=== PATIENT | male | born 1985 | race African-American/Black ===

== ENCOUNTER 2020-03-08 00:21 | Inpatient (IN) ==
[2020-03-08] MEDS ORDERED: SODIUM CHLORIDE 0.9% 1,000 ML IV STA ×2 (00:40→01:35)
[2020-03-08 01:21] LABS: Bilirubin,Urine Negative (Negative); Blood, Urine Negative (Negative); Glucose,Urine (UA) Negative (Negative); Ketones,Urine 5 mg/dL (Negative); Mucus,Urine Many /LPF (Occasional); Nitrite,Urine Negative (Negative); Protein,Urine 100 MG/DL; Sperm,Urine Moderate /HPF (Negative); Urine Appearance Slightly Hazy (Clear); Urine Color Amber (Yellow); Urine Specific Gravity 1.029 (1.001-1.035)
[2020-03-08 01:24] LABS: Basophils % 0.3 % (0.0-0.8); Hematocrit 42.8 VOL% (42.0-52.0); Hemoglobin 12.6 GM/DL (14.0-18.0); Immature Granulocytes % 0.4 %; Immature Granulocytes Absolute 0.06 #; Lymphocytes # 1.2 10*3/uL (1.4-4.0); Lymphocytes % 7.6 % (21.2-54.2); Mean Corpuscular HGB Conc 29.4 GM/DL (32-36); Mean Platelet Volume 10.6 FL (9.6-12.0); Neutrophils % 73.7 % (38.7-73.9); Platelet Count 418 T/CUMM (130-400); Red Cell Distribution Width 17.2 % (9.3-17.3); White Blood Count 15.2 T/CUMM (4-12)
[2020-03-08] MEDS ORDERED: CEFEPIME 1,000 MG in SODIUM CHLORIDE 0.9% 100 ML IV STA (01:35)
[2020-03-08 01:39] LABS: Alanine Aminotransferase 13 U/L (16-61); Albumin 3.2 G/DL (3.4-5.0); Alkaline Phosphatase 77 U/L (45-117); Aspartate Amino Transferase 13 U/L (0-37); Blood Urea Nitrogen 24 MG/DL (7-18); Calcium 10.1 MG/DL (8.5-10.1); Estimated Glom Filtration Rate 143 ML/MIN; Glucose 108 MG/DL (74-106); Osmolality,Calculated 290.8 MOS/KG (273-304); Total Protein 8.6 G/DL (6.4-8.3)
[2020-03-08 02:03] LABS: Band Neutrophils 4 % (0-10); Lymphocytes 19 % (20-55); Segmented Neutrophils 63 % (50-85); Total Cells Counted 100
[2020-03-08 02:04] LABS: Ovalocytes Few; Polychromasia Few
[2020-03-08 02:05] LABS: Dohle Bodies Few; Platelet Estimate Adequate
[2020-03-08] MEDS ORDERED: DEXTROSE 50% 25 GM/50 ML VIAL IV PRN (02:08)
[2020-03-08] MEDS ORDERED: ONDANSETRON 4 MG/2 ML VIAL IV PRN (02:08)
[2020-03-08] MEDS ORDERED: GLUCAGON 1 MG VIAL IM PRN (02:08)
[2020-03-08 02:28] LABS: INR 1.3; PT Patient Result 14.1 SECS (9.8-11.9)
[2020-03-08] MEDS: ALBUTEROL/IPRATROPIUM 3 ML NEB RESP TX SCH ×6 (02:45→22:21)
[2020-03-08] MEDS: ENOXAPARIN 40 MG/0.4 ML SYRINGE SUBCUT SCH (03:26)
[2020-03-08] MEDS: CEFEPIME 1,000 MG in SODIUM CHLORIDE 0.9% 100 ML IV SCH ×4 (03:27→21:09)
[2020-03-08] MEDS: QUEtiapine 100 MG TABLET PO SCH ×2 (03:27→16:03)
[2020-03-08] MEDS: SODIUM CHLORIDE 0.9% 1,000 ML IV SCH ×2 (03:56→15:35)
[2020-03-08 03:57] LABS: Basophils % 0.2 % (0.0-0.8); Hematocrit 36.3 VOL% (42.0-52.0); Immature Granulocytes % 0.4 %; Immature Granulocytes Absolute 0.05 #; Lymphocytes # 1.2 10*3/uL (1.4-4.0); Lymphocytes % 10.5 % (21.2-54.2); Mean Corpuscular HGB Conc 30.3 GM/DL (32-36); Mean Platelet Volume 9.9 FL (9.6-12.0); Monocytes % 16.2 % (1.7-12.7); Neutrophils % 72.7 % (38.7-73.9); Platelet Count 293 T/CUMM (130-400); Red Blood Count 5.26 MC/CUMM (3.8-5.5); Red Cell Distribution Width 15.8 % (9.3-17.3); White Blood Count 11.8 T/CUMM (4-12)
[2020-03-08 04:18] LABS: Calcium 8.9 MG/DL (8.5-10.1); Osmolality,Calculated 293.6 MOS/KG (273-304)
[2020-03-08 04:28] LABS: Band Neutrophils 7 % (0-10); Hypochromasia 1+; Lymphocytes 9 % (20-55); Microcytosis 1+; Platelet Estimate Adequate; Segmented Neutrophils 65 % (50-85); Total Cells Counted 100
[2020-03-08] MEDS: DIVALPROEX 500 MG TABLET PO SCH ×2 (09:00→21:08)
[2020-03-08] MEDS ORDERED: LORazepam 2 MG/1 ML VIAL ONE (09:29)
[2020-03-08] MEDS: HALOPERIDOL 5 MG TABLET PO SCH ×2 (10:30→21:08)
[2020-03-08] MEDS: PANTOPRAZOLE 40 MG TABLET PO SCH (10:30)
[2020-03-08] MEDS ORDERED: ACETAMINOPHEN 500 MG TABLET PER TUBE ONE (15:47)
[2020-03-08] MEDS ORDERED: ACETAMINOPHEN 325 MG/10.15 ML UDCUP PER TUBE ONE (15:51)
[2020-03-08] MEDS: ACETAMINOPHEN 325 MG/10.15 ML UDCUP PER TUBE PRN (16:04)
[2020-03-09] MEDS: ALBUTEROL/IPRATROPIUM 3 ML NEB RESP TX SCH ×6 (02:13→23:25)
[2020-03-09] MEDS: ENOXAPARIN 40 MG/0.4 ML SYRINGE SUBCUT SCH (02:38)
[2020-03-09] MEDS: QUEtiapine 100 MG TABLET PO SCH ×2 (04:54→15:53)
[2020-03-09] MEDS: CEFEPIME 1,000 MG in SODIUM CHLORIDE 0.9% 100 ML IV SCH ×4 (04:55→21:42)
[2020-03-09] MEDS: SODIUM CHLORIDE 0.9% 1,000 ML IV SCH (06:00)
[2020-03-09 06:11] LABS: Basophils % 0.2 % (0.0-0.8); Hematocrit 30.1 VOL% (42.0-52.0); Immature Granulocytes % 0.7 %; Immature Granulocytes Absolute 0.11 #; Lymphocytes # 1.9 10*3/uL (1.4-4.0); Lymphocytes % 11.7 % (21.2-54.2); Mean Corpuscular HGB Conc 29.9 GM/DL (32-36); Mean Corpuscular Volume 69.4 FL (87-102); Mean Platelet Volume 10.9 FL (9.6-12.0); Monocytes % 8.3 % (1.7-12.7); Neutrophils % 79.1 % (38.7-73.9); Platelet Count 266 T/CUMM (130-400); Red Blood Count 4.34 MC/CUMM (3.8-5.5); Red Cell Distribution Width 15.7 % (9.3-17.3)
[2020-03-09 06:14] LABS: Calcium 8.4 MG/DL (8.5-10.1); Osmolality,Calculated 291.6 MOS/KG (273-304)
[2020-03-09 06:29] LABS: White Blood Count 16.6 T/CUMM (4-12)
[2020-03-09 06:36] LABS: Hypochromasia 1+; Lymphocytes 14 % (20-55); Microcytosis 1+; Platelet Estimate Adequate; Segmented Neutrophils 82 % (50-85); Total Cells Counted 100
[2020-03-09] MEDS ORDERED: POTASSIUM CHLORIDE 20 MEQ/15 ML UDCUP PER TUBE PRN (07:37)
[2020-03-09] MEDS ORDERED: POTASSIUM PHOSPHATE 30 MMOL in SODIUM CHLORIDE 0.9% 250 ML IV ONE (09:00)
[2020-03-09] MEDS: DIVALPROEX 500 MG TABLET PO SCH ×2 (09:25→21:41)
[2020-03-09] MEDS: HALOPERIDOL 5 MG TABLET PO SCH ×2 (09:25→21:41)
[2020-03-09] MEDS: PANTOPRAZOLE 40 MG TABLET PO SCH (09:25)
[2020-03-09] MEDS: SODIUM CHLORIDE 0.45% 1,000 ML IV SCH (09:26)
[2020-03-09] MEDS: ACETAMINOPHEN 325 MG/10.15 ML UDCUP PER TUBE PRN ×2 (09:40→21:42)
[2020-03-09] MEDS: DESITIN 4OZ/NYSTATIN 15 GRAM MIXTURE PASTE TOP SCH ×2 (15:53→21:43)
[2020-03-09] MEDS: NYSTATIN POWDER 15 GM BOTTLE TOP SCH ×2 (15:53→21:43)
[2020-03-10] MEDS: ALBUTEROL/IPRATROPIUM 3 ML NEB RESP TX SCH ×6 (03:55→23:20)
[2020-03-10] MEDS: CEFEPIME 1,000 MG in SODIUM CHLORIDE 0.9% 100 ML IV SCH ×4 (04:42→21:04)
[2020-03-10] MEDS: QUEtiapine 100 MG TABLET PO SCH ×2 (04:42→15:45)
[2020-03-10] MEDS: ENOXAPARIN 40 MG/0.4 ML SYRINGE SUBCUT SCH (04:42)
[2020-03-10] MEDS: ACETAMINOPHEN 325 MG/10.15 ML UDCUP PER TUBE PRN ×2 (05:13→15:45)
[2020-03-10] MEDS: SODIUM CHLORIDE 0.45% 1,000 ML IV SCH (05:27)
[2020-03-10 07:04] LABS: Basophils % 0.1 % (0.0-0.8); Hematocrit 28.3 VOL% (42.0-52.0); Hemoglobin 8.5 GM/DL (14.0-18.0); Immature Granulocytes % 0.4 %; Immature Granulocytes Absolute 0.04 #; Lymphocytes # 1.3 10*3/uL (1.4-4.0); Lymphocytes % 13.2 % (21.2-54.2); Monocytes % 7.1 % (1.7-12.7); Neutrophils % 79.2 % (38.7-73.9); Platelet Count 232 T/CUMM (130-400); Red Cell Distribution Width 15.8 % (9.3-17.3); White Blood Count 10.1 T/CUMM (4-12)
[2020-03-10 07:26] LABS: Hypochromasia 1+; Lymphocytes 9 % (20-55); Microcytosis 1+; Platelet Estimate Adequate; Segmented Neutrophils 85 % (50-85); Total Cells Counted 100
[2020-03-10 07:56] LABS: Calcium 8.2 MG/DL (8.5-10.1); Osmolality,Calculated 282.1 MOS/KG (273-304)
[2020-03-10] MEDS: DESITIN 4OZ/NYSTATIN 15 GRAM MIXTURE PASTE TOP SCH ×2 (10:02→20:42)
[2020-03-10] MEDS: NYSTATIN POWDER 15 GM BOTTLE TOP SCH ×2 (10:02→20:42)
[2020-03-10] MEDS: PANTOPRAZOLE 40 MG TABLET PO SCH (10:02)
[2020-03-10] MEDS: HALOPERIDOL 5 MG TABLET PO SCH ×2 (10:03→20:42)
[2020-03-10] MEDS: DIVALPROEX 500 MG TABLET PO SCH ×2 (10:03→20:41)
[2020-03-10] MEDS: VANCOMYCIN INJ 1,000 MG in SODIUM CHLORIDE 0.9% 250 ML IV SCH ×2 (10:05→20:42)
[2020-03-11] MEDS: ALBUTEROL/IPRATROPIUM 3 ML NEB RESP TX SCH ×5 (03:00→19:09)
[2020-03-11] MEDS: ENOXAPARIN 40 MG/0.4 ML SYRINGE SUBCUT SCH (03:26)
[2020-03-11] MEDS: QUEtiapine 100 MG TABLET PO SCH ×2 (03:26→14:51)
[2020-03-11] MEDS: CEFEPIME 1,000 MG in SODIUM CHLORIDE 0.9% 100 ML IV SCH ×4 (03:27→23:56)
[2020-03-11 06:27] LABS: Basophils % 0.2 % (0.0-0.8); Eosinophils % 0.2 % (0.00-10.9); Hematocrit 28.3 VOL% (42.0-52.0); Hemoglobin 8.6 GM/DL (14.0-18.0); Immature Granulocytes % 0.2 %; Immature Granulocytes Absolute 0.02 #; Lymphocytes # 1.8 10*3/uL (1.4-4.0); Mean Corpuscular HGB Conc 30.4 GM/DL (32-36); Mean Platelet Volume 11.4 FL (9.6-12.0); Monocytes % 12.9 % (1.7-12.7); Neutrophils % 65.5 % (38.7-73.9); Platelet Count 233 T/CUMM (130-400); Red Blood Count 4.16 MC/CUMM (3.8-5.5); Red Cell Distribution Width 15.7 % (9.3-17.3); White Blood Count 8.7 T/CUMM (4-12)
[2020-03-11 06:40] LABS: Calcium 8.3 MG/DL (8.5-10.1); Osmolality,Calculated 274.5 MOS/KG (273-304)
[2020-03-11 07:03] LABS: Hypochromasia Slight; Lymphocytes 16 % (20-55); Microcytosis 2+; Platelet Estimate Normal; Segmented Neutrophils 71 % (50-85); Total Cells Counted 100
[2020-03-11] MEDS: SODIUM CHLORIDE 0.45% 1,000 ML IV SCH (07:29)
[2020-03-11] MEDS: VANCOMYCIN INJ 1,000 MG in SODIUM CHLORIDE 0.9% 250 ML IV SCH ×2 (08:25→22:11)
[2020-03-11] MEDS: DIVALPROEX 500 MG TABLET PO SCH ×2 (09:28→21:53)
[2020-03-11] MEDS: POTASSIUM CHLORIDE 20 MEQ/15 ML UDCUP PER TUBE PRN ×3 (09:28→14:51)
[2020-03-11] MEDS: HALOPERIDOL 5 MG TABLET PO SCH ×2 (09:28→21:53)
[2020-03-11] MEDS: PANTOPRAZOLE 40 MG TABLET PO SCH (09:29)
[2020-03-11] MEDS: NYSTATIN POWDER 15 GM BOTTLE TOP SCH ×2 (09:30→21:52)
[2020-03-11] MEDS: DESITIN 4OZ/NYSTATIN 15 GRAM MIXTURE PASTE TOP SCH ×2 (09:30→21:52)
[2020-03-12] MEDS: ALBUTEROL/IPRATROPIUM 3 ML NEB RESP TX SCH ×6 (00:35→19:49)
[2020-03-12] MEDS: ENOXAPARIN 40 MG/0.4 ML SYRINGE SUBCUT SCH (03:39)
[2020-03-12] MEDS: QUEtiapine 100 MG TABLET PO SCH ×2 (03:40→14:43)
[2020-03-12] MEDS: CEFEPIME 1,000 MG in SODIUM CHLORIDE 0.9% 100 ML IV SCH ×4 (03:46→23:42)
[2020-03-12] MEDS: HALOPERIDOL 5 MG TABLET PO SCH ×2 (09:55→23:40)
[2020-03-12] MEDS: DIVALPROEX 500 MG TABLET PO SCH ×2 (09:55→23:40)
[2020-03-12] MEDS: PANTOPRAZOLE 40 MG TABLET PO SCH (09:55)
[2020-03-12] MEDS: VANCOMYCIN INJ 1,000 MG in SODIUM CHLORIDE 0.9% 250 ML IV SCH ×3 (10:24→17:35)
[2020-03-12] MEDS: SODIUM CHLORIDE 0.45% 1,000 ML IV SCH ×2 (10:57→17:36)
[2020-03-12] MEDS: NYSTATIN POWDER 15 GM BOTTLE TOP SCH ×2 (10:58→23:40)
[2020-03-12] MEDS: DESITIN 4OZ/NYSTATIN 15 GRAM MIXTURE PASTE TOP SCH ×2 (10:58→23:40)
[2020-03-13] MEDS: ALBUTEROL/IPRATROPIUM 3 ML NEB RESP TX SCH ×3 (00:21→08:06)
[2020-03-13] MEDS: VANCOMYCIN INJ 1,000 MG in SODIUM CHLORIDE 0.9% 250 ML IV SCH (03:12)
[2020-03-13] MEDS: ENOXAPARIN 40 MG/0.4 ML SYRINGE SUBCUT SCH (03:12)
[2020-03-13] MEDS: QUEtiapine 100 MG TABLET PO SCH ×2 (03:12→15:20)
[2020-03-13] MEDS: CEFEPIME 1,000 MG in SODIUM CHLORIDE 0.9% 100 ML IV SCH (04:14)
[2020-03-13 06:43] LABS: Basophils % 0.4 % (0.0-0.8); Eosinophils # 0.2 10*3/uL (0.0-0.87); Eosinophils % 2.6 % (0.00-10.9); Hematocrit 31.6 VOL% (42.0-52.0); Immature Granulocytes % 0.7 %; Immature Granulocytes Absolute 0.05 #; Lymphocytes # 1.9 10*3/uL (1.4-4.0); Lymphocytes % 25.7 % (21.2-54.2); Mean Corpuscular HGB Conc 30.1 GM/DL (32-36); Mean Corpuscular Volume 68.3 FL (87-102); Mean Platelet Volume 10.9 FL (9.6-12.0); Monocytes % 13.6 % (1.7-12.7); Platelet Count 329 T/CUMM (130-400); Red Blood Count 4.63 MC/CUMM (3.8-5.5); Red Cell Distribution Width 15.7 % (9.3-17.3); White Blood Count 7.3 T/CUMM (4-12)
[2020-03-13 06:46] LABS: Hemoglobin 9.5 GM/DL (14.0-18.0)
[2020-03-13 06:57] LABS: Calcium 9.1 MG/DL (8.5-10.1); Osmolality,Calculated 273.7 MOS/KG (273-304)
[2020-03-13] MEDS ORDERED: LEVOFLOXACIN 500 MG TABLET PO SCH (09:00)
[2020-03-13] MEDS: DESITIN 4OZ/NYSTATIN 15 GRAM MIXTURE PASTE TOP SCH (10:33)
[2020-03-13] MEDS: NYSTATIN POWDER 15 GM BOTTLE TOP SCH (10:33)
[2020-03-13] MEDS: DIVALPROEX 500 MG TABLET PO SCH (10:34)
[2020-03-13] MEDS: PANTOPRAZOLE 40 MG TABLET PO SCH (10:34)
[2020-03-13] MEDS: HALOPERIDOL 5 MG TABLET PO SCH (10:34)
[2020-03-13 12:06] VITALS: BP 103/75
[2020-03-13] MEDS: SODIUM CHLORIDE 0.45% 1,000 ML IV SCH (15:20)
== END 2020-03-13 15:05 | DRG 193 ==
LOC: EDUNIT# → EDBD → N.ED 00:21 → SUATTDRO 02:08 → N.EDINP 02:08 → N.3E 11:56
PROVIDERS: ADMIT Internal Medicine; ATTEND Phlebology

== ENCOUNTER 2020-03-16 12:34 | Inpatient (IN) ==
[2020-03-16] MEDS ORDERED: PIPERACILLIN/TAZOBACTAM 3,375 MG in SODIUM CHLORIDE 0.9% 100 ML IV STA (13:16)
[2020-03-16] MEDS ORDERED: SODIUM CHLORIDE 0.9% 1,000 ML IV STA (13:16)
[2020-03-16 13:21] LABS: Basophils % 0.2 % (0.0-0.8); Hematocrit 36.9 VOL% (42.0-52.0); Hemoglobin 10.9 GM/DL (14.0-18.0); Immature Granulocytes % 0.7 %; Immature Granulocytes Absolute 0.14 #; Lymphocytes # 1.5 10*3/uL (1.4-4.0); Lymphocytes % 7.5 % (21.2-54.2); Mean Corpuscular HGB Conc 29.5 GM/DL (32-36); Mean Platelet Volume 9.5 FL (9.6-12.0); Monocytes % 6.7 % (1.7-12.7); Neutrophils % 84.9 % (38.7-73.9); Platelet Count 551 T/CUMM (130-400); Red Blood Count 5.43 MC/CUMM (3.8-5.5); Red Cell Distribution Width 15.8 % (9.3-17.3); White Blood Count 19.7 T/CUMM (4-12)
[2020-03-16 13:35] LABS: INR 1.2; PT Patient Result 12.3 SECS (9.8-11.9)
[2020-03-16] MEDS ORDERED: ACETAMINOPHEN 325 MG/10.15 ML UDCUP PEG STA (13:38)
[2020-03-16] MEDS ORDERED: ACETAMINOPHEN 160 MG/5 ML UDCUP ONE (13:42)
[2020-03-16 13:43] LABS: Alanine Aminotransferase 19 U/L (16-61); Albumin 2.7 G/DL (3.4-5.0); Alkaline Phosphatase 65 U/L (45-117); Aspartate Amino Transferase 19 U/L (0-37); Bilirubin,Total < 0.39 MG/DL (0.2-1.0); Blood Urea Nitrogen 23 MG/DL (7-18); Calcium 9.4 MG/DL (8.5-10.1); Carbon Dioxide 24 MMOL/L (21-32); Estimated Glom Filtration Rate 133 ML/MIN; Glucose 107 MG/DL (74-106); Osmolality,Calculated 267.5 MOS/KG (273-304); Potassium 4.6 MMOL/L (3.5-5.1); Sodium 132 MMOL/L (136-145); Total Protein 8.3 G/DL (6.4-8.3)
[2020-03-16 14:07] LABS: Anisocytosis 1+; Band Neutrophils 2 % (0-10); Hypochromasia 1+; Lymphocytes 8 % (20-55); Platelet Estimate Adequate; Polychromasia Few; Segmented Neutrophils 86 % (50-85); Target Cells Few; Total Cells Counted 100
[2020-03-16] MEDS ORDERED: SODIUM CHLORIDE 0.9% 500 ML IV STA (15:08)
[2020-03-16 15:42] LABS: Ferritin 664.3 ng/ml (26-388)
[2020-03-16] MEDS ORDERED: ONDANSETRON 4 MG/2 ML VIAL IV PRN (15:46)
[2020-03-16] MEDS ORDERED: hydrALAZINE 20 MG/1 ML VIAL IV PRN (15:46)
[2020-03-16] MEDS ORDERED: GLUCAGON 1 MG VIAL IM PRN (15:46)
[2020-03-16] MEDS ORDERED: LACTULOSE 20 GM/30 ML UDCUP PO PRN (15:46)
[2020-03-16] MEDS ORDERED: DEXTROSE 50% 25 GM/50 ML VIAL IV PRN (15:46)
[2020-03-16] MEDS ORDERED: ACETAMINOPHEN 325 MG TABLET PER TUBE PRN (15:46)
[2020-03-16 16:30] LABS: Risk Ratio 2.29; Thyroid Stimulating Hormone 1.49 uIU/ml (0.358-3.74); VLDL CHOLESTEROL 12.4 MG/DL
[2020-03-16] MEDS: ALBUTEROL 2.5 MG/3 ML NEB RESP TX SCH (19:53)
[2020-03-16] MEDS: MEROPENEM 500 MG in SODIUM CHLORIDE 0.9% 100 ML IV SCH ×2 (20:10→21:30)
[2020-03-16] MEDS: SODIUM CHLORIDE 0.9% 1,000 ML IV SCH (20:10)
[2020-03-16 20:54] LABS: Bacteria,Urine Occasional /HPF (Few); Bilirubin,Urine Negative (Negative); Blood, Urine Negative (Negative); Glucose,Urine (UA) Negative (Negative); Ketones,Urine Negative (Negative); Mucus,Urine Occasional /LPF (Occasional); Nitrite,Urine Negative (Negative); Protein,Urine Negative; RBC,Urine 2 /HPF (0-4); Squamous Epithelial Cell,Urine Occasional /HPF (0-10); Urine Appearance CLEAR (Clear); Urine Color Yellow (Yellow); WBC,Urine 2 /HPF (0-6)
[2020-03-16] MEDS: guaiFENesin/DM ER 600-30 MG TABLET PO SCH (21:06)
[2020-03-16] MEDS: DIVALPROEX 500 MG TABLET PO SCH (21:07)
[2020-03-16] MEDS: QUEtiapine 100 MG TABLET PO SCH (21:07)
[2020-03-17] MEDS: ALBUTEROL 2.5 MG/3 ML NEB RESP TX SCH ×4 (00:27→19:30)
[2020-03-17 04:14] LABS: Basophils # 0.1 10*3/uL (0.0-0.2); Basophils % 0.2 % (0.0-0.8); Eosinophils % 0.1 % (0.00-10.9); Hematocrit 28.7 VOL% (42.0-52.0); Immature Granulocytes % 0.6 %; Immature Granulocytes Absolute 0.14 #; Lymphocytes # 1.9 10*3/uL (1.4-4.0); Lymphocytes % 8.6 % (21.2-54.2); Mean Corpuscular HGB Conc 31.4 GM/DL (32-36); Mean Corpuscular Volume 67.4 FL (87-102); Mean Platelet Volume 9.9 FL (9.6-12.0); Monocytes % 6.1 % (1.7-12.7); Neutrophils % 84.4 % (38.7-73.9); Platelet Count 462 T/CUMM (130-400); Red Blood Count 4.26 MC/CUMM (3.8-5.5); Red Cell Distribution Width 15.6 % (9.3-17.3); White Blood Count 21.8 T/CUMM (4-12)
[2020-03-17] MEDS: MEROPENEM 500 MG in SODIUM CHLORIDE 0.9% 100 ML IV SCH ×4 (04:19→21:20)
[2020-03-17] MEDS: QUEtiapine 100 MG TABLET PO SCH ×2 (04:19→18:44)
[2020-03-17 04:42] LABS: Band Neutrophils 2 % (0-10); Hypochromasia 2+; Lymphocytes 10 % (20-55); Myelocytes 1 %; Segmented Neutrophils 82 % (50-85); Total Cells Counted 100
[2020-03-17 04:43] LABS: Microcytosis 1+; Ovalocytes Slight; Platelet Estimate Increased; Target Cells Slight
[2020-03-17 04:48] LABS: Calcium 9.1 MG/DL (8.5-10.1); Osmolality,Calculated 276.5 MOS/KG (273-304); Potassium 4.1 MMOL/L (3.5-5.1)
[2020-03-17] MEDS ORDERED: SODIUM CHLORIDE 0.9% 500 ML IV ONE (08:18)
[2020-03-17] MEDS: DIVALPROEX 500 MG TABLET PO SCH ×2 (08:43→21:22)
[2020-03-17] MEDS: guaiFENesin/DM ER 600-30 MG TABLET PO SCH ×2 (08:43→21:21)
[2020-03-17] MEDS: OMEPRAZOLE ODT 20 MG TABLET PER TUBE SCH (08:43)
[2020-03-17] MEDS: SODIUM CHLORIDE 0.9% 1,000 ML IV SCH (08:57)
[2020-03-17] MEDS: methylPREDNISolone SOD SUC 40 MG/1 ML VIAL IV SCH ×2 (08:57→18:44)
[2020-03-17] MEDS: ZINC OXIDE PASTE 113 GM TUBE TOP SCH ×2 (18:44→21:23)
[2020-03-18] MEDS: methylPREDNISolone SOD SUC 40 MG/1 ML VIAL IV SCH ×3 (00:04→17:21)
[2020-03-18] MEDS: ALBUTEROL 2.5 MG/3 ML NEB RESP TX SCH ×4 (00:43→19:35)
[2020-03-18] MEDS: SODIUM CHLORIDE 0.9% 1,000 ML IV SCH ×3 (01:26→21:03)
[2020-03-18] MEDS: MEROPENEM 500 MG in SODIUM CHLORIDE 0.9% 100 ML IV SCH ×4 (03:50→22:02)
[2020-03-18] MEDS: QUEtiapine 100 MG TABLET PO SCH ×2 (03:50→17:06)
[2020-03-18 06:00] LABS: Hematocrit 28.5 VOL% (42.0-52.0); Hemoglobin 8.4 GM/DL (14.0-18.0); Immature Granulocytes % 0.7 %; Immature Granulocytes Absolute 0.07 #; Lymphocytes # 0.9 10*3/uL (1.4-4.0); Lymphocytes % 8.9 % (21.2-54.2); Mean Corpuscular HGB Conc 29.5 GM/DL (32-36); Mean Corpuscular Volume 67.9 FL (87-102); Mean Platelet Volume 9.9 FL (9.6-12.0); Monocytes % 2.3 % (1.7-12.7); Neutrophils % 88.1 % (38.7-73.9); Platelet Count 462 T/CUMM (130-400); Red Cell Distribution Width 15.4 % (9.3-17.3); White Blood Count 10.2 T/CUMM (4-12)
[2020-03-18 06:16] LABS: Calcium 9.2 MG/DL (8.5-10.1); Osmolality,Calculated 268.2 MOS/KG (273-304); Potassium 3.9 MMOL/L (3.5-5.1)
[2020-03-18] MEDS: DIVALPROEX 500 MG TABLET PO SCH (10:17)
[2020-03-18] MEDS: guaiFENesin/DM ER 600-30 MG TABLET PO SCH ×2 (10:17→21:03)
[2020-03-18] MEDS: OMEPRAZOLE ODT 20 MG TABLET PER TUBE SCH (10:17)
[2020-03-18] MEDS: ZINC OXIDE PASTE 113 GM TUBE TOP SCH ×2 (10:18→21:03)
[2020-03-18] MEDS ORDERED: DIVALPROEX SPRINKLE 125 MG CAPSULE PO SCH (21:00)
[2020-03-18] MEDS: DIVALPROEX SPRINKLE 125 MG CAPSULE PO SCH (21:03)
[2020-03-19] MEDS: methylPREDNISolone SOD SUC 40 MG/1 ML VIAL IV SCH ×3 (00:31→16:45)
[2020-03-19] MEDS: ALBUTEROL 2.5 MG/3 ML NEB RESP TX SCH ×4 (01:38→19:05)
[2020-03-19] MEDS: QUEtiapine 100 MG TABLET PO SCH ×2 (03:34→16:50)
[2020-03-19] MEDS: MEROPENEM 500 MG in SODIUM CHLORIDE 0.9% 100 ML IV SCH ×4 (03:34→21:03)
[2020-03-19 06:12] LABS: Hematocrit 27.5 VOL% (42.0-52.0); Hemoglobin 8.3 GM/DL (14.0-18.0); Immature Granulocytes % 0.6 %; Immature Granulocytes Absolute 0.04 #; Lymphocytes # 0.8 10*3/uL (1.4-4.0); Lymphocytes % 11.9 % (21.2-54.2); Mean Corpuscular HGB Conc 30.2 GM/DL (32-36); Mean Corpuscular Volume 67.2 FL (87-102); Mean Platelet Volume 10.2 FL (9.6-12.0); Monocytes % 3.2 % (1.7-12.7); Neutrophils % 84.3 % (38.7-73.9); Platelet Count 496 T/CUMM (130-400); Red Blood Count 4.09 MC/CUMM (3.8-5.5); Red Cell Distribution Width 15.5 % (9.3-17.3); White Blood Count 6.8 T/CUMM (4-12)
[2020-03-19 08:17] LABS: Calcium 8.7 MG/DL (8.5-10.1); Potassium 3.7 MMOL/L (3.5-5.1)
[2020-03-19] MEDS: DIVALPROEX SPRINKLE 125 MG CAPSULE PO SCH ×4 (08:42→21:03)
[2020-03-19] MEDS: OMEPRAZOLE ODT 20 MG TABLET PER TUBE SCH (08:42)
[2020-03-19] MEDS: ZINC OXIDE PASTE 113 GM TUBE TOP SCH ×2 (08:43→21:04)
[2020-03-19] MEDS: guaiFENesin/DM ER 600-30 MG TABLET PO SCH ×2 (08:43→21:03)
[2020-03-19] MEDS: SODIUM CHLORIDE 0.9% 1,000 ML IV SCH ×2 (09:19→12:13)
[2020-03-20] MEDS: ALBUTEROL 2.5 MG/3 ML NEB RESP TX SCH ×4 (00:11→19:08)
[2020-03-20] MEDS: SODIUM CHLORIDE 0.9% 1,000 ML IV SCH (00:12)
[2020-03-20] MEDS: methylPREDNISolone SOD SUC 40 MG/1 ML VIAL IV SCH ×3 (02:48→22:01)
[2020-03-20] MEDS: MEROPENEM 500 MG in SODIUM CHLORIDE 0.9% 100 ML IV SCH ×4 (06:23→22:08)
[2020-03-20] MEDS: QUEtiapine 100 MG TABLET PO SCH ×2 (06:34→15:55)
[2020-03-20 06:35] LABS: Hematocrit 33.2 VOL% (42.0-52.0); Hemoglobin 9.8 GM/DL (14.0-18.0); Immature Granulocytes % 0.5 %; Immature Granulocytes Absolute 0.03 #; Lymphocytes # 0.8 10*3/uL (1.4-4.0); Lymphocytes % 13.6 % (21.2-54.2); Mean Corpuscular HGB Conc 29.5 GM/DL (32-36); Mean Corpuscular Volume 68.7 FL (87-102); Monocytes % 4.2 % (1.7-12.7); Neutrophils % 81.7 % (38.7-73.9); Platelet Count 574 T/CUMM (130-400); Red Blood Count 4.83 MC/CUMM (3.8-5.5); Red Cell Distribution Width 15.3 % (9.3-17.3); White Blood Count 5.5 T/CUMM (4-12)
[2020-03-20 06:59] LABS: Calcium 8.8 MG/DL (8.5-10.1); Osmolality,Calculated 275.7 MOS/KG (273-304); Potassium 3.9 MMOL/L (3.5-5.1)
[2020-03-20] MEDS: guaiFENesin/DM ER 600-30 MG TABLET PO SCH ×2 (09:06→21:40)
[2020-03-20] MEDS: ZINC OXIDE PASTE 113 GM TUBE TOP SCH ×2 (09:06→22:00)
[2020-03-20] MEDS: VALPROIC ACID 250 MG/5 ML UDCUP PO SCH ×5 (09:06→21:40)
[2020-03-20] MEDS: OMEPRAZOLE ODT 20 MG TABLET PER TUBE SCH (09:06)
[2020-03-20] MEDS ORDERED: methylPREDNISolone SOD SUC 40 MG/1 ML VIAL IV SCH (11:30)
[2020-03-20] MEDS: VANCOMYCIN INJ 1,000 MG in SODIUM CHLORIDE 0.9% 250 ML IV SCH (13:22)
[2020-03-21] MEDS: ALBUTEROL 2.5 MG/3 ML NEB RESP TX SCH ×4 (00:20→19:06)
[2020-03-21] MEDS: VANCOMYCIN INJ 1,000 MG in SODIUM CHLORIDE 0.9% 250 ML IV SCH ×2 (00:51→12:45)
[2020-03-21] MEDS: MEROPENEM 500 MG in SODIUM CHLORIDE 0.9% 100 ML IV SCH ×4 (05:00→23:05)
[2020-03-21 05:44] LABS: Basophils % 0.1 % (0.0-0.8); Hematocrit 32.5 VOL% (42.0-52.0); Hemoglobin 10.1 GM/DL (14.0-18.0); Immature Granulocytes % 0.9 %; Immature Granulocytes Absolute 0.07 #; Lymphocytes # 2.1 10*3/uL (1.4-4.0); Lymphocytes % 27.9 % (21.2-54.2); Mean Corpuscular HGB Conc 31.1 GM/DL (32-36); Mean Corpuscular Volume 66.3 FL (87-102); Mean Platelet Volume 10.1 FL (9.6-12.0); Monocytes % 12.5 % (1.7-12.7); Neutrophils % 58.6 % (38.7-73.9); Platelet Count 516 T/CUMM (130-400); Red Cell Distribution Width 15.3 % (9.3-17.3); White Blood Count 7.5 T/CUMM (4-12)
[2020-03-21 05:54] LABS: Calcium 8.4 MG/DL (8.5-10.1); Osmolality,Calculated 268.1 MOS/KG (273-304)
[2020-03-21] MEDS: QUEtiapine 100 MG TABLET PO SCH ×2 (06:30→17:24)
[2020-03-21] MEDS: VALPROIC ACID 250 MG/5 ML UDCUP PO SCH ×4 (10:10→23:00)
[2020-03-21] MEDS: OMEPRAZOLE ODT 20 MG TABLET PER TUBE SCH (10:10)
[2020-03-21] MEDS: guaiFENesin/DM ER 600-30 MG TABLET PO SCH ×2 (10:10→22:58)
[2020-03-21] MEDS: methylPREDNISolone SOD SUC 40 MG/1 ML VIAL IV SCH ×2 (10:11→22:59)
[2020-03-21] MEDS: ZINC OXIDE PASTE 113 GM TUBE TOP SCH ×2 (10:15→23:00)
[2020-03-21] MEDS: HALOPERIDOL 5 MG TABLET PO SCH ×2 (12:38→22:58)
[2020-03-22] MEDS: ALBUTEROL 2.5 MG/3 ML NEB RESP TX SCH ×4 (01:54→18:51)
[2020-03-22] MEDS: VANCOMYCIN INJ 1,000 MG in SODIUM CHLORIDE 0.9% 250 ML IV SCH ×2 (02:32→14:55)
[2020-03-22] MEDS: MEROPENEM 500 MG in SODIUM CHLORIDE 0.9% 100 ML IV SCH ×4 (04:34→22:00)
[2020-03-22] MEDS: QUEtiapine 100 MG TABLET PO SCH ×2 (05:20→18:23)
[2020-03-22] MEDS ORDERED: ALBUTEROL 2.5 MG/3 ML NEB RESP TX ONE (07:13)
[2020-03-22] MEDS: methylPREDNISolone SOD SUC 40 MG/1 ML VIAL IV SCH ×2 (08:57→21:55)
[2020-03-22] MEDS: HALOPERIDOL 5 MG TABLET PO SCH ×2 (08:58→21:55)
[2020-03-22] MEDS: guaiFENesin/DM ER 600-30 MG TABLET PO SCH ×2 (08:58→21:55)
[2020-03-22] MEDS: OMEPRAZOLE ODT 20 MG TABLET PER TUBE SCH (08:58)
[2020-03-22] MEDS: ZINC OXIDE PASTE 113 GM TUBE TOP SCH ×2 (09:02→21:56)
[2020-03-22] MEDS: VALPROIC ACID 250 MG/5 ML UDCUP PO SCH ×4 (09:02→21:56)
[2020-03-23] MEDS: VANCOMYCIN INJ 1,000 MG in SODIUM CHLORIDE 0.9% 250 ML IV SCH ×2 (02:46→14:58)
[2020-03-23] MEDS: ALBUTEROL 2.5 MG/3 ML NEB RESP TX SCH ×4 (02:48→19:40)
[2020-03-23] MEDS: MEROPENEM 500 MG in SODIUM CHLORIDE 0.9% 100 ML IV SCH ×4 (04:23→22:20)
[2020-03-23] MEDS: QUEtiapine 100 MG TABLET PO SCH ×2 (04:23→17:31)
[2020-03-23 05:57] LABS: Hematocrit 34.9 VOL% (42.0-52.0); Immature Granulocytes % 1.3 %; Immature Granulocytes Absolute 0.06 #; Lymphocytes % 21.5 % (21.2-54.2); Mean Corpuscular HGB Conc 30.4 GM/DL (32-36); Mean Corpuscular Volume 67.8 FL (87-102); Mean Platelet Volume 9.9 FL (9.6-12.0); Monocytes % 6.8 % (1.7-12.7); Neutrophils % 70.4 % (38.7-73.9); Platelet Count 467 T/CUMM (130-400); Red Blood Count 5.15 MC/CUMM (3.8-5.5); Red Cell Distribution Width 16.7 % (9.3-17.3); White Blood Count 4.6 T/CUMM (4-12)
[2020-03-23 05:58] LABS: Calcium 8.8 MG/DL (8.5-10.1)
[2020-03-23 05:59] LABS: Hemoglobin 10.6 GM/DL (14.0-18.0)
[2020-03-23] MEDS: HALOPERIDOL 5 MG TABLET PO SCH ×2 (09:45→22:20)
[2020-03-23] MEDS: VALPROIC ACID 250 MG/5 ML UDCUP PO SCH ×4 (09:45→22:20)
[2020-03-23] MEDS: OMEPRAZOLE ODT 20 MG TABLET PER TUBE SCH (09:46)
[2020-03-23] MEDS: ZINC OXIDE PASTE 113 GM TUBE TOP SCH ×2 (09:46→22:20)
[2020-03-23] MEDS: guaiFENesin/DM ER 600-30 MG TABLET PO SCH ×2 (09:46→22:20)
[2020-03-23] MEDS: methylPREDNISolone SOD SUC 40 MG/1 ML VIAL IV SCH (09:49)
[2020-03-24] MEDS: ALBUTEROL 2.5 MG/3 ML NEB RESP TX SCH ×2 (00:53→07:30)
[2020-03-24] MEDS: VANCOMYCIN INJ 1,000 MG in SODIUM CHLORIDE 0.9% 250 ML IV SCH (03:36)
[2020-03-24] MEDS: QUEtiapine 100 MG TABLET PO SCH (03:39)
[2020-03-24 06:18] LABS: Calcium 8.5 MG/DL (8.5-10.1); Osmolality,Calculated 274.7 MOS/KG (273-304); Potassium 3.5 MMOL/L (3.5-5.1)
[2020-03-24] MEDS: HALOPERIDOL 5 MG TABLET PO SCH (08:46)
[2020-03-24] MEDS: VALPROIC ACID 250 MG/5 ML UDCUP PO SCH (08:46)
[2020-03-24] MEDS: guaiFENesin/DM ER 600-30 MG TABLET PO SCH (08:46)
[2020-03-24] MEDS: OMEPRAZOLE ODT 20 MG TABLET PER TUBE SCH (08:46)
[2020-03-24] MEDS ORDERED: predniSONE 20 MG TABLET PO SCH (09:00)
[2020-03-24] MEDS: ZINC OXIDE PASTE 113 GM TUBE TOP SCH (10:15)
[2020-03-24 11:22] VITALS: BP 127/78
== END 2020-03-24 15:00 | DRG 871 ==
LOC: EDUNIT# → EDBD → N.ED 12:34 → N.EDINP 15:47 → SUATTDRO 15:47 → N.TELES 19:40
PROVIDERS: ADMIT Internal Medicine; ATTEND Internal Medicine Geriatric Medicine